=== PATIENT | male | born 1995 | race Two or more races ===

== ENCOUNTER 2023-08-06 21:12 | Emergency (ER) | payer OTHER ==
[2023-08-06 21:24] VITALS: RESP 18; TEMP 97.9; BMI 31.0
[2023-08-06] MEDS ORDERED: DIPHTH,PERTUSS(ACELL),TET 0.5 ML DISP.SYRIN IM ONE ×2 (22:04→22:49)
[2023-08-06 22:37] LABS: BASO % 1.4 % (0-2.0); EOS % 8.6 % (0-4.5); HEMATOCRIT 43.9 % (35.4-49); HEMOGLOBIN 15.6 GM/dL (11.7-16.9); LYMPH % 36.3 % (8-40); MCH 31.8 pg (25.7-33.7); MCHC 35.5 g/dl (32.0-35.9); MEAN CELL VOLUME 89.5 fl (80-96); MEAN PLT VOLUME 9.3 fl (7.5-11.1); MONO % 10.3 % (3.8-10.2); NEUT % 43.4 % (42.8-82.8); PLATELET COUNT 273 10^3/uL (134-434); RBC 4.91 M/mm3 (4.00-5.60); RDW 12.9 % (11.9-15.9); WHITE BLOOD COUNT 6.3 K/mm3 (4.0-10.0)
[2023-08-06 23:05] LABS: POTASSIUM 4.7 mmol/L (3.5-5.1)
[2023-08-06 23:06] LABS: CALCIUM 8.8 mg/dL (8.5-10.1)
[2023-08-06 23:07] LABS: BLOOD UREA NITROGEN 20.6 mg/dL (7-18)
[2023-08-06 23:10] LABS: CREATININE 1.3 mg/dL (0.55-1.3)
[2023-08-06 23:12] LABS: BILIRUBIN,TOTAL 0.4 mg/dL (0.2-1); TOT PROT 7.2 g/dl (6.4-8.2)
[2023-08-07 00:38] LABS: PHENCYCLIDINE,URINE NEGATIVE (NEGATIVE); URINE BARBITURATES NEGATIVE (NEGATIVE)
[2023-08-07 00:39] LABS: COCAINE, UR NEGATIVE (NEGATIVE); METHADONE, UR NEGATIVE (NEGATIVE); OPIATES, URI NEGATIVE (NEGATIVE); URINE AMPHETAMINES NEGATIVE (NEGATIVE); URINE BENZODIAZEPINES NEGATIVE (NEGATIVE)
[2023-08-07 00:58] LABS: URINE APPEARANCE Clear; URINE BILIRUBIN Negative (NEGATIVE); URINE COLOR Yellow; URINE GLUCOSE (UA) Negative (NEGATIVE); URINE KETONE Negative (NEGATIVE); URINE LEUK ESTERASE Negative (NEGATIVE); URINE NITRITE Negative (NEGATIVE); URINE PROTEIN Negative (NEGATIVE); URINE UROBILINOGEN 0.2 mg/dL (0.2-1.0)
[2023-08-07 01:25] VITALS: BP 108/72; PULSE 69
== END 2023-08-07 01:43 | disposition admitted as inpatient to this hospital (09) ==
LOC: JER 21:12
PROC: 3E0234Z Introduction of Serum, Toxoid and Vaccine into Muscle, Percutaneous Approach (ICD-10-PCS; principal; 2023-08-06)
DX: R07.9 Chest pain, unspecified (principal); R55 Syncope and collapse; R42 Dizziness and giddiness; S01.81XA Laceration without foreign body of other part of head, initial encounter; W22.8XXA Striking against or struck by other objects, initial encounter; Y92.009 Unspecified place in unspecified non-institutional (private) residence as the place of occurrence of the external cause
CPT/HCPCS: 36415; 70450-TC; 71046-TC-FY; 72125-TC; 80053; 80307; 81003; 84484; 85025; 90471; 90715; 93005; 93010; 99285-25

== ENCOUNTER 2023-08-13 18:49 | Emergency (ER) | payer OTHER ==
[2023-08-13 18:54] VITALS: BP 111/74; PULSE 78; RESP 20; TEMP 98.4; BMI 29.0
== END 2023-08-13 19:19 | disposition home or self-care (01) ==
LOC: JERFT 18:49
DX: Z48.02 Encounter for removal of sutures (principal)
CPT/HCPCS: 99282-25